=== PATIENT | male | born 1960 | race Caucasian/White ===

== ENCOUNTER 2017-09-11 11:17 | Day surgery (SDC) | payer OTHER ==
[~2017-09-11 11:17] MED LIST: CEFAZOLIN 1 GM INJ; CEFAZOLIN 1 GM/50 ML (PMX) 50 ML IVPB; LIDOCAINE 2% (SDV) 5 ML INJ; PROPOFOL 200 MG INJ; ROCURONIUM 50 MG INJ; SOD CHLORIDE 0.9% 1,000 ML IV; SUGAMMADEX SODIUM 200 MG/2 ML VIAL IV
[2017-09-11] MEDS ORDERED: POLYMYXIN/BACITRACIN 1L IRRIG (15:51)
[2017-09-11] MEDS ORDERED: MIDAZOLAM 1 MG/ML 2 ML INJ (16:10)
[2017-09-11] MEDS ORDERED: FENTAnyl 50 MCG/ML VIAL (16:10)
[2017-09-11] MEDS: BUPIVACAINE 0.25% (MPF) 30 ML INJ (16:40)
[2017-09-11] MEDS ORDERED: ONDANSETRON 4 MG INJ (16:43)
[2017-09-11] MEDS ORDERED: DEXAMETHASONE 4 MG/ML 1 ML INJ (16:43)
[2017-09-11] MEDS ORDERED: KETOROLAC 30 MG INJ (16:44)
[2017-09-11] MEDS ORDERED: ROPIVACAINE 0.5 % 30 ML VIAL (16:53)
[2017-09-11] MEDS ORDERED: HYDROCODONE/APAP (5/325) TAB PO (17:00)
[2017-09-11] MEDS ORDERED: HYDROmorphONE (0.2 MG/ML) 10ML SYG IV (17:44)
[2017-09-11] MEDS: HYDROmorphONE (0.2 MG/ML) 10ML SYG IV (17:49)
[2017-09-11] MEDS ORDERED: HYDROmorphONE 0.5 MG/0.5 ML SYG IV (18:00)
== END 2017-09-11 18:49 | disposition home or self-care (01) ==
LOC: SDS 11:17
DX: K40.30 Unilateral inguinal hernia, with obstruction, without gangrene, not specified as recurrent (principal)
CPT/HCPCS: 49507

== ENCOUNTER 2019-03-11 15:45 | Emergency (ER) | payer OTHER | END 2019-03-11 16:54 | disposition home or self-care (01) | LOC: FTE 16:54 | DX: R05 Cough (principal) | CPT/HCPCS: 71045; 99283-25 ==

== ENCOUNTER 2019-03-20 17:44 | Emergency (ER) | payer OTHER ==
[2019-03-20] MEDS: KETOROLAC 30 MG INJ IM (19:41)
== END 2019-03-20 21:01 | disposition home or self-care (01) ==
LOC: E/R 17:44
DX: R10.9 Unspecified abdominal pain (principal)
CPT/HCPCS: 36415; 71045; 74176; 80053; 81001; 83690; 84484; 85025; 93005; 96372; 99285-25